=== PATIENT | female | born 1935 | race Caucasian/White ===

== ENCOUNTER 2020-11-24 11:23 | Inpatient (IN) | payer MEDICARE, BC ==
[~2020-11-24] VITALS: Ht 152.4 cm; Wt 49.0 kg
--- NOTE | 2020-11-24 11:23 | NUR ---
PT BIB [facility] FROM HOME CO GENERAL WEAKNESS, PT S/P COVID + CONFIRMED LAST WEEK. IN THE FIEL, PARAMEDICS PLACED NON-REBREATHER, REPLACED THE NON-REBREATHER WITH NC 4 LITRE, O2 SAT DECREASED TO LOW 80S. REPLACED THE NON-REBREATHER PER MD ORDER. MD AT BEDSIDE. PT DENIES SOB, DOES NOT USE ABDOMINAL MUSCLES.
[2020-11-24] MEDS ORDERED: CEFEPIME HCL 2 G in IV DEXTROSE 5% 100 ML IV ONE (11:45)
[2020-11-24] MEDS: AZITHROMYCIN IV 500 MG in IV DEXTROSE 5% 250 ML IV ONE ×2 (11:45→11:58)
[2020-11-24] MEDS ORDERED: CEFEPIME HCL 1 G VIAL ONE (11:49)
[2020-11-24] MEDS ORDERED: AZITHROMYCIN 500MG/ D5W 250ML IVPB **ER PYXIS ONLY IV ONE (11:49)
[2020-11-24 11:51] LABS: HEMATOCRIT 40.6 % (31.2-41.9); MEAN CORPUSCULAR HEMOGLOBIN 30.3 uug (24.7-32.8); MEAN CORPUSCULAR VOLUME 91.1 fL (75.5-95.3); PLATELET COUNT (AUTO) 348 K/uL (179-408)
--- NOTE | 2020-11-24 12:00 | NUR ---
RT PLACED HIGH FLOW OXYGEN ON PT. 40 LITRE, 100%, SAT 97%.
[2020-11-24 12:07] LABS: ALANINE AMINOTRANSFERASE 26 U/L (14-59); ALKALINE PHOSPHATASE 57 U/L (50-136); ASPARTATE AMINOTRANSFERASE 26 U/L (15-37); BILIRUBIN,DIRECT 0.2 mg/dL (0.0-0.2); BILIRUBIN,TOTAL 0.4 mg/dL (0.2-1.0); CARBON DIOXIDE 21 mmol/L (21-32); CHLORIDE 97 mmol/L (98-107); CREATININE 2.1 mg/dL (0.6-1.3); GLUCOSE 292 mg/dL (74-106); POTASSIUM 5.6 mmol/L (3.5-5.1)
[2020-11-24 12:20] LABS: UREA NITROGEN, BLOOD 117 mg/dL (7-18)
[2020-11-24] MEDS ORDERED: SODIUM POLYSTYRENE SULFONATE 15 G/60 ML LIQUID UDC PO ONE (12:45)
[2020-11-24] MEDS ORDERED: DEXTROSE 50% 50 ML DISP.SYRIN IV ONE (12:45)
[2020-11-24] MEDS ORDERED: CALCIUM GLUCONATE IV 1 GM in IV DEXTROSE 5% 50 ML IV ONE (12:45)
[2020-11-24] MEDS ORDERED: ALBUTEROL SULFATE 2.5 MG/3 ML NEBU NEB ONE (12:45)
[2020-11-24] MEDS ORDERED: FUROSEMIDE 20 MG/2 ML VIAL IVP ONE (12:45)
[2020-11-24] MEDS ORDERED: INSULIN REGULAR, HUMAN 300 UNIT/3 ML VIAL IV ONE (12:45)
[2020-11-24] MEDS ORDERED: IV NORMAL SALINE 50 ML BAG IV ONE (12:45)
[2020-11-24] MEDS ORDERED: CALCIUM GLUCONATE 1 GM/10 ML VIAL IV ONE (12:53)
[2020-11-24] MEDS ORDERED: ALBUTEROL SULFATE 2.5 MG/3 ML NEBU ONE ×2 (12:59→13:00)
[2020-11-24] MEDS ORDERED: FUROSEMIDE 40 MG/4 ML VIAL ONE (13:05)
[2020-11-24] MEDS ORDERED: DEXTROSE 50% 50 ML DISP.SYRIN ONE (13:06)
[2020-11-24] MEDS ORDERED: SODIUM POLYSTYRENE SULFONATE 15 G/60 ML LIQUID UDC ONE (13:06)
[2020-11-24] MEDS ORDERED: INSULIN REGULAR, HUMAN 300 UNIT/3 ML VIAL ONE (13:06)
--- NOTE | 2020-11-24 13:20 | NUR ---
PT'S DAUGHTER HERE AND GAVE HX OF: MYELOFIBROSIS, HTN, DM, THYROID.
--- NOTE | 2020-11-24 13:26 | NUR ---
CALLED PT 'S , JOSE PARKERER AND GOT THE MED LIST
[2020-11-24] MEDS ORDERED: LISI1TAB55 PO (13:31)
[2020-11-24] MEDS ORDERED: FURO-152 PO (13:31)
[2020-11-24] MEDS ORDERED: ROSU40TA PO (13:31)
[2020-11-24] MEDS ORDERED: POTA10CA43 PO (13:31)
[2020-11-24] MEDS ORDERED: PRED1TAB PO (13:31)
[2020-11-24] MEDS ORDERED: LEVO100T10 PO (13:31)
[2020-11-24 14:10] LABS: *BILIRUBIN,URIN NEGATIVE (NEGATIVE); *BLOOD, URINE 2+ (NEGATIVE); *CLARITY,URINE CLEAR (CLEAR); *COLOR,URINE LIGHT YELLOW (YELLOW); *KETONES,URINE NEGATIVE (NEGATIVE); *UROBILINOGEN,URINE 0.2 E.U./dl (NORMAL); LEUKOCYTE ESTERASE ,URINE NEGATIVE (NEGATIVE); NITRITE, URINE NEGATIVE (NEGATIVE); UGLUCOSE TRACE (NEGATIVE)
--- NOTE | 2020-11-24 15:00 | NUR ---
pt able to swallow a cup of water slowly.
[2020-11-24] MEDS ORDERED: INSU300I SQ ×2 (15:56→18:49)
--- NOTE | 2020-11-24 16:00 | NUR ---
transfered pt to floor with covid 19 precautions. pt remained on high flow oxygen, sat 92-94%. pt remained lethargic, but awake, axox4.
[2020-11-24 17:22] VITALS: BP 102/48
[2020-11-24 17:23] LABS: BACTERIA,URINE FEW /HPF (NONE SEEN); SQUAMOUS EPITHELIAL CELL,UR FEW /HPF (NONE SEEN); WBC,URINE 0-3 /HPF (0-3)
[2020-11-24] MEDS ORDERED: DENO60DI SQ (18:49)
[2020-11-24] MEDS ORDERED: MAGN400C PO (18:49)
[2020-11-24] MEDS ORDERED: ERGO50CA PO (18:49)
[2020-11-24] MEDS ORDERED: SITA1TAB6 PO (18:49)
--- NOTE | 2020-11-24 19:00 | NUR ---
Repositioned in bed. O2 with H[place]low at 40 L 100% FiO2 with O2 sat of 92-93%. Endorsed fro further care
[2020-11-24] MEDS ORDERED: DEXTROSE 50% 50 ML DISP.SYRIN IV PRN (19:45)
[2020-11-24 20:20] VITALS: BP 141/56
[2020-11-24] MEDS ORDERED: MORPHINE SULFATE 2 MG/1 ML DISP.SYRIN IV PRN (20:45)
[2020-11-24] MEDS ORDERED: ONDANSETRON 4 MG/2 ML VIAL IV PRN (20:45)
[2020-11-24] MEDS: DEXAMETHASONE SOD PHOSPHATE 4 MG INJ IV SCH ×2 (20:52→22:00)
[2020-11-24] MEDS ORDERED: ALBUTEROL SULFATE 8 GM HFA.AER.AD IH PRN (21:00)
[2020-11-24] MEDS: AZITHROMYCIN IV 500 MG in IV DEXTROSE 5% 250 ML IV SCH (21:11)
[2020-11-24] MEDS: IV NS 1000 ML 1,000 ML IV SCH (21:22)
[2020-11-24] MEDS: HEPARIN SODIUM,PORCINE 5,000 UNITS/ML VIAL SQ SCH (21:23)
[2020-11-24] MEDS: BLOOD SUGAR DIAGNOSTIC 1 EACH STRIP VI SCH (21:24)
[2020-11-24] MEDS: INSULIN GLARGINE,HUM 300 UNITS/3 ML CARTRIDGE SQ SCH (21:24)
[2020-11-24] MEDS: INSULIN REGULAR, HUMAN 300 UNIT/3 ML VIAL SQ PRN (21:26)
[2020-11-25 00:20] VITALS: BP 126/56
[2020-11-25 04:20] VITALS: BP 128/53
[2020-11-25] MEDS: DEXAMETHASONE SOD PHOSPHATE 4 MG INJ IV SCH ×3 (05:27→22:04)
[2020-11-25] MEDS: BLOOD SUGAR DIAGNOSTIC 1 EACH STRIP VI SCH ×4 (05:48→21:50)
[2020-11-25] MEDS: LEVOTHYROXINE SODIUM 100 MCG TABLET PO SCH (06:24)
[2020-11-25 06:28] LABS: HEMATOCRIT 34.7 % (31.2-41.9); MEAN CORPUSCULAR HEMOGLOBIN 30.4 uug (24.7-32.8); MEAN CORPUSCULAR VOLUME 90.1 fL (75.5-95.3); PLATELET COUNT (AUTO) 218 K/uL (179-408)
[2020-11-25] MEDS: IV NS 1000 ML 1,000 ML IV SCH ×2 (06:45→08:50)
[2020-11-25 07:03] LABS: THYROID STIMULATING HORMONE 0.176 mIU/mL (0.358-3.740)
[2020-11-25 07:23] LABS: ALANINE AMINOTRANSFERASE 27 U/L (14-59); ALKALINE PHOSPHATASE 48 U/L (50-136); ASPARTATE AMINOTRANSFERASE 21 U/L (15-37); BILIRUBIN,TOTAL 0.3 mg/dL (0.2-1.0); CARBON DIOXIDE 24 mmol/L (21-32); CHLORIDE 104 mmol/L (98-107); CHOLESTEROL 149 mg/dL (<200); CREATININE 1.8 mg/dL (0.6-1.3); FERRITIN 1504 ng/mL (8-252); GLUCOSE 200 mg/dL (74-106); HDL CHOLESTEROL 51 mg/dL (40-60); LACTATE DEHYDROGENASE 315 U/L (81-234); MAGNESIUM 2.5 mg/dL (1.8-2.4); PHOSPHOROUS 4.4 mg/dL (2.5-4.9); POTASSIUM 5.1 mmol/L (3.5-5.1); TOTAL PROTEIN, SERUM 6.9 g/dL (6.4-8.2); TRIGLYCERIDES 486 MG/DL (30-150)
[2020-11-25 07:46] LABS: UREA NITROGEN, BLOOD 90 mg/dL (7-18)
[2020-11-25] MEDS: HEPARIN SODIUM,PORCINE 5,000 UNITS/ML VIAL SQ SCH ×2 (08:08→21:51)
[2020-11-25] MEDS: INSULIN REGULAR, HUMAN 300 UNIT/3 ML VIAL SQ PRN ×4 (08:09→22:03)
[2020-11-25] MEDS: ZINC SULFATE 220 MG CAPSULE PO SCH (08:10)
[2020-11-25] MEDS: ASCORBIC ACID 500 MG TABLET PO SCH (08:10)
[2020-11-25] MEDS: PANTOPRAZOLE SODIUM 40 MG VIAL IV SCH (08:10)
[2020-11-25] MEDS: CHOLECALCIFEROL 1,000 UNIT TABLET PO SCH (08:10)
[2020-11-25 09:18] LABS: ABG BASE EXCESS -4.3 mmol/L; ABG HCO3 18.6 mmol/L; ABG PCO2 29.5 mmHg (35.0-45.0); ABG PH 7.418 (7.350-7.450); ABG PO2 69.2 mmHg (75.0-100.0); ABG SITE RIGHT RADIAL; ABG TOTAL HEMOGLOBIN 16.8 G/dL (12.0-16.0); COHb 1.2 % (0.5-1.5); MetHb 0.1 % (0.0-1.5); O2Hb 92.3 % (94.0-97.0); VENT MODE VAPOTHERM
[2020-11-25] MEDS: ACETAMINOPHEN 325 MG TABLET PO PRN ×2 (11:23→22:06)
[2020-11-25 12:00] VITALS: BP 133/52
--- NOTE | 2020-11-25 12:00 | NUR ---
SEEN BY DR WEAVER FOR PULMO CONSULT SEE NOTES
[2020-11-25 16:18] VITALS: BP 109/35
--- NOTE | 2020-11-25 17:18 | NUR ---
PATIENT SATURATING 92-94% ON HF O2 40% . DENIES CHEST PAIN, SLIGHT SOB ON EXERTION. SR ON MONITOR
--- NOTE | 2020-11-25 19:30 | NUR ---
RECEIVED PT AWAKE,ALERT AND ORIENTEDX4. PT IN NO ACUTE DISTRESS. IV INTACT. SAFETY AND COMFORT PROVIDED. PT ON HIGH FLOW 40%. WILL CONTINUE TO MONITOR.
[2020-11-25 20:43] VITALS: BP 126/48
[2020-11-25] MEDS: AZITHROMYCIN IV 500 MG in IV DEXTROSE 5% 250 ML IV SCH (21:50)
[2020-11-25] MEDS: INSULIN GLARGINE,HUM 300 UNITS/3 ML CARTRIDGE SQ SCH (22:02)
[2020-11-26 00:24] VITALS: BP 129/48
[2020-11-26 04:20] VITALS: BP 146/64
[2020-11-26] MEDS: DEXAMETHASONE SOD PHOSPHATE 4 MG INJ IV SCH ×3 (05:37→21:30)
--- NOTE | 2020-11-26 05:41 | NUR ---
PT SLEPT INTERMITTENTLY. PT IN NO ACUTE RESPIRATORY DISTRESS. IV INTACT. PRESCRIBED MEDICATION GIVEN AND PT TOLERATED IT WELL. TYLENOL PRN GIVEN AT 2206H. SAFETY AND COMFORT PROVIDED. WILL ENDORSE TO INCOMING NURSE FOR CONTINUITY OF CARE.
[2020-11-26] MEDS: LEVOTHYROXINE SODIUM 100 MCG TABLET PO SCH (06:16)
[2020-11-26 06:32] LABS: HEMATOCRIT 29.9 % (31.2-41.9); MEAN CORPUSCULAR HEMOGLOBIN 31.3 uug (24.7-32.8); MEAN CORPUSCULAR VOLUME 90.3 fL (75.5-95.3); PLATELET COUNT (AUTO) 239 K/uL (179-408)
[2020-11-26] MEDS: IV NS 1000 ML 1,000 ML IV SCH (06:32)
[2020-11-26] MEDS: BLOOD SUGAR DIAGNOSTIC 1 EACH STRIP VI SCH ×4 (06:32→21:57)
[2020-11-26 06:51] LABS: CARBON DIOXIDE 23 mmol/L (21-32); CHLORIDE 106 mmol/L (98-107); CREATININE 1.6 mg/dL (0.6-1.3); GLUCOSE 205 mg/dL (74-106); MAGNESIUM 2.3 mg/dL (1.8-2.4); POTASSIUM 4.8 mmol/L (3.5-5.1); UREA NITROGEN, BLOOD 70 mg/dL (7-18)
--- NOTE | 2020-11-26 07:30 | NUR ---
Received patient resting in bed. AOx4. On 40% high flow, saturating at 93-95%. NSR on monitor. No signs of acute distress. Patient denies pain/ discomfort. Will continue to monitor. Addendum: 11/26/20 at 1427 by BRIAN MURCIA RN RN Patient on 40L, 100% FIO2 Highflow NC.
[2020-11-26] MEDS: INSULIN REGULAR, HUMAN 300 UNIT/3 ML VIAL SQ PRN ×4 (07:33→22:01)
[2020-11-26] MEDS: PANTOPRAZOLE SODIUM 40 MG VIAL IV SCH (08:14)
[2020-11-26] MEDS: ASCORBIC ACID 500 MG TABLET PO SCH (08:16)
[2020-11-26] MEDS: ZINC SULFATE 220 MG CAPSULE PO SCH (08:16)
[2020-11-26] MEDS: CHOLECALCIFEROL 1,000 UNIT TABLET PO SCH (08:16)
[2020-11-26] MEDS: HEPARIN SODIUM,PORCINE 5,000 UNITS/ML VIAL SQ SCH ×2 (08:17→21:31)
[2020-11-26 12:00] VITALS: BP 138/42
[2020-11-26 15:31] LABS: BAND % (MANUAL) 2 % (0-10); LYMPHOCYTES % (MANUAL) 10 % (20-40); MONOCYTES % (MANUAL) 5 % (2-10); NEUTROPHILS % (MANUAL) 83 % (42-75)
[2020-11-26 16:00] VITALS: BP 133/51
[2020-11-26] MEDS ORDERED: REMDESIVIR (CHARGED) 200 MG in IV NORMAL SALINE 210 ML IV ONE (17:15)
[2020-11-26] MEDS: GLUCERNA SHAKE VANILLA 237 ML CAN PO SCH (17:40)
--- NOTE | 2020-11-26 17:57 | NUR ---
PT REMAINS ON HFNC 40 LPM, 100% FIO2. PT STABLE THROUGHOUT SHIFT. SATURATION BETWEEN 90-97%. PT COMPLAINS OF SOB ON EXERTION OTHERWISE SHOWS NO DISTRESS WHILE AT REST. CONT. P.OX AT BEDSIDE. STERILE H2O BAG CHANGED DURING SHIFT. WILL CONTINUE TO MONITOR.
--- NOTE | 2020-11-26 18:53 | NUR ---
Patient resting in bed. AOx4. On 40L Highflow, 100% FIO2, saturating at 94-96%. No signs of acute distress. Patient denies pain/ discomfort. Patient compliant with medications and care. Safety measures provided. Needs anticipated and met. Will endorse to incoming shift for continuity of care.
[2020-11-26 19:54] VITALS: BP 146/48
[2020-11-26] MEDS: AZITHROMYCIN IV 500 MG in IV DEXTROSE 5% 250 ML IV SCH (21:30)
[2020-11-26] MEDS: INSULIN GLARGINE,HUM 300 UNITS/3 ML CARTRIDGE SQ SCH (22:03)
--- NOTE | 2020-11-26 23:37 | NUR ---
Received patient on bed with, AOx4, able to make needs known. Remains on continuous 40L highflow, 100% FIO2, saturating at 96%, no respiratory distress noted. Denies pain and discomfort at this time. Due medications given on time and blood sugar checked with sliding scale and routine insulin given. Safety measures provided. All needs attended. Call light placed within reach. Frequent visual checks done. Will continue to monitor.
[2020-11-27 00:13] VITALS: BP 152/45
[2020-11-27 04:40] VITALS: BP 145/45
[2020-11-27] MEDS: DEXAMETHASONE SOD PHOSPHATE 4 MG INJ IV SCH ×3 (05:31→21:08)
[2020-11-27] MEDS: LEVOTHYROXINE SODIUM 100 MCG TABLET PO SCH (06:00)
[2020-11-27] MEDS: PANTOPRAZOLE SODIUM 40 MG TABLET.DR PO SCH (06:01)
[2020-11-27] MEDS: BLOOD SUGAR DIAGNOSTIC 1 EACH STRIP VI SCH ×4 (06:32→20:20)
--- NOTE | 2020-11-27 06:41 | NUR ---
Patient slept throughout the night, easily arousable for care and able to make needs known. Remains on continuous 40L highflow, 100% FIO2, saturating at 94%-96%, no respiratory distress noted. Midline on LUDMILA and peripheral line on LAC intact and flushed with NS. Denies pain and discomfort at this time. Blood sugar checked 144 at 0630H. Safety measures provided. All needs attended. Call light placed within reach. Frequent visual checks done. Will endorse to next shift for continuity of care.
[2020-11-27 06:54] LABS: HEMATOCRIT 31.1 % (31.2-41.9); MEAN CORPUSCULAR HEMOGLOBIN 31.5 uug (24.7-32.8); MEAN CORPUSCULAR VOLUME 92.9 fL (75.5-95.3); PLATELET COUNT (AUTO) 246 K/uL (179-408)
[2020-11-27 07:28] LABS: CARBON DIOXIDE 22 mmol/L (21-32); CHLORIDE 108 mmol/L (98-107); CREATININE 1.4 mg/dL (0.6-1.3); GLUCOSE 158 mg/dL (74-106); MAGNESIUM 2.2 mg/dL (1.8-2.4); PHOSPHOROUS 3.9 mg/dL (2.5-4.9); POTASSIUM 5.1 mmol/L (3.5-5.1); UREA NITROGEN, BLOOD 61 mg/dL (7-18)
--- NOTE | 2020-11-27 08:00 | NUR ---
Awake, alert, oriented x 4, on moderate high back rest. O2 with Hi flow at 40L 100% FIO2 with O2 sat of 90%. Able to eat 50% of breakfast served.
[2020-11-27] MEDS: ASCORBIC ACID 500 MG TABLET PO SCH (09:09)
[2020-11-27] MEDS: CHOLECALCIFEROL 1,000 UNIT TABLET PO SCH (09:10)
[2020-11-27] MEDS: ZINC SULFATE 220 MG CAPSULE PO SCH (09:10)
[2020-11-27] MEDS: HEPARIN SODIUM,PORCINE 5,000 UNITS/ML VIAL SQ SCH ×2 (09:11→20:10)
[2020-11-27] MEDS: INSULIN REGULAR, HUMAN 300 UNIT/3 ML VIAL SQ PRN ×3 (09:12→16:48)
[2020-11-27] MEDS: GLUCERNA SHAKE VANILLA 237 ML CAN PO SCH ×3 (09:26→16:48)
--- NOTE | 2020-11-27 11:00 | NUR ---
Resting with O2 sat of 94-96% with Hi flow O2 at 40L 100% FIO2
[2020-11-27 11:05] VITALS: BP 150/46
[2020-11-27 11:17] VITALS: BP 150/46
--- NOTE | 2020-11-27 15:00 | NUR ---
Sponge bath given. Repositioned in bed comfortably
[2020-11-27 15:28] VITALS: BP 152/62
[2020-11-27] MEDS ORDERED: FUROSEMIDE 20 MG/2 ML VIAL IV ONE (16:45)
[2020-11-27] MEDS ORDERED: REMDESIVIR (CHARGED) 100 MG in IV NORMAL SALINE 100 ML IV SCH (17:15)
--- NOTE | 2020-11-27 18:05 | NUR ---
Desaturation noted when eating, 82% O2 sat. Repositioned comfortably. Will monitor
--- NOTE | 2020-11-27 18:52 | NUR ---
Resting comfortably. O2 sat 94% with O2 on hi flow at 40L 100% FIO2. Endorsed for further care
[2020-11-27] MEDS: INSULIN GLARGINE,HUM 300 UNITS/3 ML CARTRIDGE SQ SCH (20:19)
[2020-11-27 20:36] VITALS: BP 142/55
[2020-11-28 00:32] VITALS: BP 144/56
--- NOTE | 2020-11-28 03:07 | NUR ---
PATIENT ON HIGH FLOW NASAL CANNULA @ 100%, @ 40L/M , DOING WELL, PULSE OXY AT BEDSIDE, SAT 94 - 97%, CHANGE H20 BAG, PT STABLE. Josselyn ALLANP Addendum: 11/28/20 at 0308 by CAMERON WESTBROOK RT Amended: Links added.
[2020-11-28 04:39] VITALS: BP 147/48
[2020-11-28 06:21] LABS: HEMATOCRIT 31.8 % (31.2-41.9); MEAN CORPUSCULAR VOLUME 88.7 fL (75.5-95.3); PLATELET COUNT (AUTO) 299 K/uL (179-408)
[2020-11-28] MEDS: DEXAMETHASONE SOD PHOSPHATE 4 MG INJ IV SCH ×3 (06:21→20:49)
[2020-11-28] MEDS: PANTOPRAZOLE SODIUM 40 MG TABLET.DR PO SCH (06:21)
[2020-11-28] MEDS: BLOOD SUGAR DIAGNOSTIC 1 EACH STRIP VI SCH ×4 (06:22→21:00)
[2020-11-28] MEDS: LEVOTHYROXINE SODIUM 100 MCG TABLET PO SCH (06:22)
--- NOTE | 2020-11-28 06:44 | NUR ---
Pt rested well in between care; tolerated present high flow setting; needs attended; repositioned for comfort.
[2020-11-28 07:02] LABS: ALANINE AMINOTRANSFERASE 74 U/L (14-59); ALKALINE PHOSPHATASE 48 U/L (50-136); ASPARTATE AMINOTRANSFERASE 32 U/L (15-37); BILIRUBIN,DIRECT 0.1 mg/dL (0.0-0.2); BILIRUBIN,TOTAL 0.3 mg/dL (0.2-1.0); CARBON DIOXIDE 25 mmol/L (21-32); CHLORIDE 105 mmol/L (98-107); CREATININE 1.5 mg/dL (0.6-1.3); FERRITIN 2955 ng/mL (8-252); GLUCOSE 158 mg/dL (74-106); LACTATE DEHYDROGENASE 314 U/L (81-234); PHOSPHOROUS 5.1 mg/dL (2.5-4.9); POTASSIUM 4.6 mmol/L (3.5-5.1); TOTAL PROTEIN, SERUM 6.1 g/dL (6.4-8.2); UREA NITROGEN, BLOOD 72 mg/dL (7-18)
[2020-11-28] MEDS: INSULIN REGULAR, HUMAN 300 UNIT/3 ML VIAL SQ PRN ×4 (07:49→21:33)
--- NOTE | 2020-11-28 08:00 | NUR ---
RECEIVED PATIENT IN ALERT AND ORIENTED DENIES PAIN OR DISCOMFORTS AT THIS TIME REMAIN ON COVID ISOLATION AND PRECAUTION ORDERED REMAIN ON 40 LITERS HIGH FLOW O2 WITH NO SOB AT THIS TIME TELE IS SR.NO S/S OF HYPO/HYPERGLYCEMIC REACTIONS AT THIS TIME CALL LIGHT AND PERSONAL BELONGINGS ARE WITHIN EASY REACH MADE COMFORTABLE WILL CONTINUE TO OBSERVE.
[2020-11-28] MEDS: CHOLECALCIFEROL 1,000 UNIT TABLET PO SCH (08:34)
[2020-11-28] MEDS: ASCORBIC ACID 500 MG TABLET PO SCH (08:34)
[2020-11-28] MEDS: ZINC SULFATE 220 MG CAPSULE PO SCH (08:34)
[2020-11-28] MEDS: HEPARIN SODIUM,PORCINE 5,000 UNITS/ML VIAL SQ SCH ×2 (08:35→21:31)
[2020-11-28] MEDS: GLUCERNA SHAKE VANILLA 237 ML CAN PO SCH ×3 (09:45→16:44)
[2020-11-28 12:00] VITALS: BP 159/62
[2020-11-28 14:07] LABS: BAND % (MANUAL) 5 % (0-10); EOSINOPHILS % (MANUAL) 1 % (0-8); LYMPHOCYTES % (MANUAL) 10 % (20-40); MONOCYTES % (MANUAL) 6 % (2-10); NEUTROPHILS % (MANUAL) 78 % (42-75)
[2020-11-28 16:00] VITALS: BP 138/63
--- NOTE | 2020-11-28 17:20 | NUR ---
DR SALDAÑA OD INFECTIOUS DISEASE POWER GENERATION ENGINEER FOR DR PATEL HERE TO SEE PATIENT WITH NO NEW ORDERS AT THIS TIME.
[2020-11-28 20:18] VITALS: BP 153/55
[2020-11-28] MEDS: FUROSEMIDE 20 MG/2 ML VIAL IV SCH (20:49)
[2020-11-28] MEDS: INSULIN GLARGINE,HUM 300 UNITS/3 ML CARTRIDGE SQ SCH (21:32)
--- NOTE | 2020-11-28 23:07 | NUR ---
AAOx4 Watching TV upon initial rounds. Needs attended. VSS. On 40% high flow oxygen 94% pulse ox. No acute distress noted. Early catheter intact draining yellow urine. Will monitor patient. Accucheck @2100 was 292 with coverage given. Denies any pain nor any discomfort.
[2020-11-29 00:12] VITALS: BP 119/53
--- NOTE | 2020-11-29 01:04 | NUR ---
PATIENT ON CONT HFNC @ 100% @ 40L/M , SAT 91-95%, CHECK H2O BAG, PT STABLE .D DARIANA LOG SAWYER Addendum: 11/29/20 at 0106 by CAMERON WESTBROOK RT Amended: Links added.
--- NOTE | 2020-11-29 04:07 | NUR ---
Awake alert and oriented x4 Early catheter intact draining yellow urine. VSS Needs attended. No acute distress noted. On 40%high flow oxygen, pulse ox 91-92% Kept comfortable. Will monitor patient.
[2020-11-29 04:18] VITALS: BP 153/66
[2020-11-29] MEDS: DEXAMETHASONE SOD PHOSPHATE 4 MG INJ IV SCH ×3 (05:28→22:27)
[2020-11-29] MEDS: PANTOPRAZOLE SODIUM 40 MG TABLET.DR PO SCH (06:03)
[2020-11-29] MEDS: LEVOTHYROXINE SODIUM 100 MCG TABLET PO SCH (06:03)
--- NOTE | 2020-11-29 06:24 | NUR ---
End of shift notes: Slept well most of the shift. AAOx4 Needs attended. No respiratory distress noted. Will monitor patient. No complaints of pain.
[2020-11-29] MEDS: BLOOD SUGAR DIAGNOSTIC 1 EACH STRIP VI SCH ×4 (06:53→22:28)
[2020-11-29] MEDS: GLUCERNA SHAKE VANILLA 237 ML CAN PO SCH ×3 (09:00→16:44)
--- NOTE | 2020-11-29 09:00 | NUR ---
Pt on high flow 40% with saturation of 95%. Pt alrt and oriented x 4. Pt denies any c/o pain. Dr Baker here to see patient. No new orders received. Call light is within reach. PT on isolation for covid +. PT has good appetite for breakfast.
[2020-11-29] MEDS: INSULIN REGULAR, HUMAN 300 UNIT/3 ML VIAL SQ PRN ×3 (09:25→16:43)
[2020-11-29] MEDS: ZINC SULFATE 220 MG CAPSULE PO SCH (09:26)
[2020-11-29] MEDS: CHOLECALCIFEROL 1,000 UNIT TABLET PO SCH (09:26)
[2020-11-29] MEDS: FUROSEMIDE 20 MG/2 ML VIAL IV SCH (09:27)
[2020-11-29] MEDS: HEPARIN SODIUM,PORCINE 5,000 UNITS/ML VIAL SQ SCH ×2 (09:27→22:24)
[2020-11-29] MEDS: ASCORBIC ACID 500 MG TABLET PO SCH (09:27)
[2020-11-29 12:00] VITALS: BP 122/45
--- NOTE | 2020-11-29 14:00 | NUR ---
Follow up with homer gottlieb spoke with Iris from lab states that there is no result and should expect result for tomorrow. Attempted to get sputum pt is no coughing and no sputum noted. PT denies any c/o pain.
[2020-11-29 16:00] VITALS: BP 109/67
--- NOTE | 2020-11-29 18:00 | NUR ---
Worked with pt x 4 re: IS x 10 WA. PT cooperative with doing the IS. Pt tolerated Prone position for 1 hr. Pt saturating 97% on high flow 40lit @ 100.
--- NOTE | 2020-11-29 19:30 | NUR ---
RECEIVED PT AWAKE, ALERT AND ORIENTEDX3. PT IN NO ACUTE DISTRESS. IV INTACT. RODRIGUEZ INTACT AND DRAINING WELL. PT ON HIGH FLOW OXYGEN 40L . SAFETY AND COMFORT PROVIDED. WILL CONTINUE TO MONITOR.
[2020-11-29 20:00] VITALS: BP 104/46
[2020-11-29] MEDS: INSULIN GLARGINE,HUM 300 UNITS/3 ML CARTRIDGE SQ SCH (21:00)
--- NOTE | 2020-11-29 23:42 | NUR ---
PATIENT HAS BEEN ON CONT HFNC @ 100% @ 40L/M , STABLE, CHANGE H2O BAG, CHECK HIGH FLOW NASAL CANNULA PERIODICALLY, WITH PULSE OXY AT BEDSIDE, SAT 91- 94%, APPROX. D DARIANA MOLD HOLDER Addendum: 11/29/20 at 2344 by CAMERON WESTBROOK RT Amended: Links added.
[2020-11-30] VITALS: BP 128/44
[2020-11-30 04:00] VITALS: BP 118/59
[2020-11-30] MEDS: DEXAMETHASONE SOD PHOSPHATE 4 MG INJ IV SCH ×3 (05:58→21:29)
[2020-11-30] MEDS: PANTOPRAZOLE SODIUM 40 MG TABLET.DR PO SCH (06:00)
[2020-11-30] MEDS: LEVOTHYROXINE SODIUM 100 MCG TABLET PO SCH (06:00)
--- NOTE | 2020-11-30 06:16 | NUR ---
PT SLEPT INTERMITTENTLY. PT IN NO ACUTE DISTRESS. IV INTACT. RODRIGUEZ INTACT AND DRAINING WELL.PT SOMETIMES FORGETFUL NEEDS REORIENTATION. PT ON SINUS RHYTHM. PRESCRIBED MEDICATION GIVEN AND PT TOLERATED IT WELL. SAFETY AND COMFORT PROVIDED. ALL NEEDS ARE MET. WILL ENDORSE TO INCOMING NURSE FOR CONTINUITY OF CARE.
[2020-11-30 06:23] LABS: HEMATOCRIT 34.4 % (31.2-41.9); MEAN CORPUSCULAR HEMOGLOBIN 30.5 uug (24.7-32.8); MEAN CORPUSCULAR VOLUME 89.1 fL (75.5-95.3); PLATELET COUNT (AUTO) 322 K/uL (179-408)
[2020-11-30] MEDS: BLOOD SUGAR DIAGNOSTIC 1 EACH STRIP VI SCH ×4 (06:32→21:08)
[2020-11-30 06:45] LABS: ALANINE AMINOTRANSFERASE 84 U/L (14-59); ALKALINE PHOSPHATASE 51 U/L (50-136); ASPARTATE AMINOTRANSFERASE 25 U/L (15-37); BILIRUBIN,DIRECT 0.1 mg/dL (0.0-0.2); BILIRUBIN,TOTAL 0.3 mg/dL (0.2-1.0); CARBON DIOXIDE 24 mmol/L (21-32); CHLORIDE 101 mmol/L (98-107); CREATININE 1.5 mg/dL (0.6-1.3); GLUCOSE 185 mg/dL (74-106); MAGNESIUM 2.1 mg/dL (1.8-2.4); PHOSPHOROUS 5.1 mg/dL (2.5-4.9); POTASSIUM 4.5 mmol/L (3.5-5.1); TOTAL PROTEIN, SERUM 6.1 g/dL (6.4-8.2)
--- NOTE | 2020-11-30 07:30 | NUR ---
received in bed hob elevated. on high flow 40lpm 100% o2. no resp distress. breathing unlabored. on continuous pulse ox spo 97%. no s/sx of pain noted. fc intact draining yellow urine. LAC iv intact. bed low and locked siderails up, alarm on. call light and personal items in reach. continue to monitor.
[2020-11-30 07:46] LABS: UREA NITROGEN, BLOOD 93 mg/dL (7-18)
--- NOTE | 2020-11-30 07:50 | NUR ---
relayed bun-[address] carlota murphy at this time.
[2020-11-30] MEDS: INSULIN REGULAR, HUMAN 300 UNIT/3 ML VIAL SQ PRN ×4 (08:15→21:28)
[2020-11-30] MEDS: ASCORBIC ACID 500 MG TABLET PO SCH (08:45)
[2020-11-30] MEDS: CHOLECALCIFEROL 1,000 UNIT TABLET PO SCH (08:45)
[2020-11-30] MEDS: ZINC SULFATE 220 MG CAPSULE PO SCH (08:45)
[2020-11-30] MEDS: HEPARIN SODIUM,PORCINE 5,000 UNITS/ML VIAL SQ SCH ×2 (08:46→21:26)
[2020-11-30] MEDS: FUROSEMIDE 20 MG/2 ML VIAL IV SCH (08:46)
[2020-11-30] MEDS: GLUCERNA SHAKE VANILLA 237 ML CAN PO SCH ×3 (08:50→17:26)
[2020-11-30 12:00] VITALS: BP 112/51
--- NOTE | 2020-11-30 13:42 | NUR ---
received call from pt's wanted to talk to doctor. dr. van provided 's number.
[2020-11-30 16:00] VITALS: BP 116/53
--- NOTE | 2020-11-30 16:40 | NUR ---
noted patient desating 87% on high flow 40 lpm 100% o2. remains alert and oriented able to make needs known. put on nrb 15lpm o2 sat went up to 98%. RT called.
--- NOTE | 2020-11-30 16:49 | NUR ---
pt verbalize she feels a little better. repositioned for comfort. spo2 98% maintained. Addendum: 11/30/20 at 1659 by AGUSTIN BARNETT RN dr. rodriguez made aware.
--- NOTE | 2020-11-30 16:55 | NUR ---
called RT again and spoke with kirt. made aware of situation and said will come.
--- NOTE | 2020-11-30 18:55 | NUR ---
pt resting but arousable to stimuli. currently on high flow 40lpm 100% O2 and nrb 15lpm. spo2 95%. breathing unlabored. denies pain or sob. stated she's comfortable. needs attended. kept comfortable.
[2020-11-30 20:00] VITALS: BP 124/50
--- NOTE | 2020-11-30 20:30 | NUR ---
PATIENT ALERT ORIENTED, NO SOB, ON HIGH FLOW OXYGEN 40%. 15 LITERS NON REBREATHER MASK, TOLERATE WELL OXYGEN SAT 98%, AFEBRILE, DENIES PAIN AT THIS TIME. CONT TO MONITOR.
[2020-11-30] MEDS: INSULIN GLARGINE,HUM 300 UNITS/3 ML CARTRIDGE SQ SCH (21:27)
[2020-12-01] VITALS: BP 131/65
[2020-12-01 04:00] VITALS: BP 137/77
[2020-12-01] MEDS: LEVOTHYROXINE SODIUM 100 MCG TABLET PO SCH (06:14)
[2020-12-01] MEDS: PANTOPRAZOLE SODIUM 40 MG TABLET.DR PO SCH (06:14)
[2020-12-01] MEDS: DEXAMETHASONE SOD PHOSPHATE 4 MG INJ IV SCH ×3 (06:14→21:07)
[2020-12-01] MEDS: BLOOD SUGAR DIAGNOSTIC 1 EACH STRIP VI SCH ×4 (06:15→20:39)
[2020-12-01 06:21] LABS: HEMATOCRIT 36.8 % (31.2-41.9); MEAN CORPUSCULAR HEMOGLOBIN 30.3 uug (24.7-32.8); MEAN CORPUSCULAR VOLUME 88.6 fL (75.5-95.3); PLATELET COUNT (AUTO) 342 K/uL (179-408)
--- NOTE | 2020-12-01 07:02 | NUR ---
PATIENT ALERT ORIENTED, NO SOB NO CHEST PAIN, APPEARS WEAK, PATIENT ON 40 LITERS HIGH FLOW AND 15 LITERS NC SAT 98-99%. PATIENT HAS NO COMPLAIN OF SHORTNESS OF BREATH. CONT TO MONITOR.
[2020-12-01 08:04] LABS: ALANINE AMINOTRANSFERASE 62 U/L (14-59); ALKALINE PHOSPHATASE 55 U/L (50-136); ASPARTATE AMINOTRANSFERASE 20 U/L (15-37); BILIRUBIN,DIRECT 0.1 mg/dL (0.0-0.2); BILIRUBIN,TOTAL 0.3 mg/dL (0.2-1.0); CARBON DIOXIDE 25 mmol/L (21-32); CHLORIDE 104 mmol/L (98-107); CREATININE 1.5 mg/dL (0.6-1.3); FERRITIN 2828 ng/mL (8-252); GLUCOSE 142 mg/dL (74-106); LACTATE DEHYDROGENASE 356 U/L (81-234); MAGNESIUM 2.3 mg/dL (1.8-2.4); PHOSPHOROUS 5.4 mg/dL (2.5-4.9); TOTAL PROTEIN, SERUM 6.6 g/dL (6.4-8.2)
[2020-12-01 08:10] LABS: UREA NITROGEN, BLOOD 101 mg/dL (7-18)
[2020-12-01] MEDS: ASCORBIC ACID 500 MG TABLET PO SCH (09:04)
[2020-12-01] MEDS: ZINC SULFATE 220 MG CAPSULE PO SCH (09:04)
[2020-12-01] MEDS: FUROSEMIDE 20 MG/2 ML VIAL IV SCH (09:04)
[2020-12-01] MEDS: CHOLECALCIFEROL 1,000 UNIT TABLET PO SCH (09:04)
[2020-12-01] MEDS: GLUCERNA SHAKE VANILLA 237 ML CAN PO SCH ×3 (09:05→17:12)
[2020-12-01] MEDS: HEPARIN SODIUM,PORCINE 5,000 UNITS/ML VIAL SQ SCH ×2 (09:43→20:18)
[2020-12-01] MEDS: INSULIN REGULAR, HUMAN 300 UNIT/3 ML VIAL SQ PRN ×4 (09:45→20:43)
--- NOTE | 2020-12-01 10:00 | NUR ---
Informed Dr. Macias regarding increased WBC, BUN and Creatinine results today, and MD said she will see patient before putting in order.
[2020-12-01 10:37] VITALS: BP 121/53
--- NOTE | 2020-12-01 14:20 | NUR ---
Patient seen by Dr. Macias, update given to MD and informed MD regarding patient's decreased food intake with no new order at this time.
[2020-12-01 14:22] LABS: BAND % (MANUAL) 1 % (0-10); LYMPHOCYTES % (MANUAL) 3 % (20-40); MONOCYTES % (MANUAL) 4 % (2-10); NEUTROPHILS % (MANUAL) 92 % (42-75)
[2020-12-01 15:36] VITALS: BP 120/53
--- NOTE | 2020-12-01 17:25 | NUR ---
Patient remains alert, oriented x 3, on high flow nasal cannula 40LPM FiO2 100% and NRB mask 15LPM with SpO2 98%, afebrile, no complain of any discomfort. Patient seen by Dr. Bhagat, update given to MD. Will continue to monitor.
[2020-12-01] MEDS ORDERED: IV DEXTROSE 5% 500 ML IV ONE (17:30)
[2020-12-01] MEDS ORDERED: IV 1/2NS 1000 ML 500 ML IV ONE (17:45)
[2020-12-01 20:00] VITALS: BP 110/46
--- NOTE | 2020-12-01 20:15 | NUR ---
PATIENT ALERT ORIENTED, x 3 NO SOB, ON HIGH FLOW OXYGEN 40%. 15 LITERS NON REBREATHER MASK, TOLERATE WELL OXYGEN SAT 99%, AFEBRILE, DENIES PAIN AT THIS TIMe luke light with in reach
[2020-12-01] MEDS: INSULIN GLARGINE,HUM 300 UNITS/3 ML CARTRIDGE SQ SCH (20:45)
[2020-12-02] VITALS: BP 112/67
--- NOTE | 2020-12-02 00:54 | NUR ---
pt resting but arousable to stimuli. currently on high flow 40lpm 100% O2 and nrb 15lpm. spo2 99%. breathing unlabored. denies pain or sob. stated she's comfortable. needs attended. kept comfortable.
[2020-12-02 04:00] VITALS: BP 124/55
[2020-12-02] MEDS: DEXAMETHASONE SOD PHOSPHATE 4 MG INJ IV SCH ×3 (05:09→22:00)
[2020-12-02] MEDS: LEVOTHYROXINE SODIUM 100 MCG TABLET PO SCH (06:04)
[2020-12-02] MEDS: PANTOPRAZOLE SODIUM 40 MG TABLET.DR PO SCH (06:04)
[2020-12-02] MEDS: BLOOD SUGAR DIAGNOSTIC 1 EACH STRIP VI SCH ×4 (06:04→20:31)
[2020-12-02 07:04] LABS: HEMATOCRIT 37.2 % (31.2-41.9); MEAN CORPUSCULAR HEMOGLOBIN 30.3 uug (24.7-32.8); MEAN CORPUSCULAR VOLUME 89.7 fL (75.5-95.3); PLATELET COUNT (AUTO) 313 K/uL (179-408)
[2020-12-02 07:09] LABS: CARBON DIOXIDE 24 mmol/L (21-32); CHLORIDE 97 mmol/L (98-107); CREATININE 1.5 mg/dL (0.6-1.3); GLUCOSE 96 mg/dL (74-106); PHOSPHOROUS 6.2 mg/dL (2.5-4.9); POTASSIUM 5.1 mmol/L (3.5-5.1)
[2020-12-02 07:30] LABS: UREA NITROGEN, BLOOD 103 mg/dL (7-18)
--- NOTE | 2020-12-02 07:42 | NUR ---
patient is alert, oriented x4, continue on high flow and nonrebreather, critical lab value bun 103 and lactic acid 2.[address] herrmann, however no acute distress noted at this time
[2020-12-02] MEDS: ASCORBIC ACID 500 MG TABLET PO SCH (08:31)
[2020-12-02] MEDS: FUROSEMIDE 20 MG/2 ML VIAL IV SCH (08:31)
[2020-12-02] MEDS: CHOLECALCIFEROL 1,000 UNIT TABLET PO SCH (08:32)
[2020-12-02] MEDS: ZINC SULFATE 220 MG CAPSULE PO SCH (08:32)
[2020-12-02] MEDS: GLUCERNA SHAKE VANILLA 237 ML CAN PO SCH ×3 (08:33→17:00)
[2020-12-02] MEDS: HEPARIN SODIUM,PORCINE 5,000 UNITS/ML VIAL SQ SCH ×2 (08:36→20:36)
[2020-12-02 09:02] VITALS: BP 112/47
--- NOTE | 2020-12-02 09:57 | NUR ---
repeated lactic acid 2.[address] herrmann
[2020-12-02 11:56] VITALS: BP 109/49
--- NOTE | 2020-12-02 14:25 | NUR ---
PT REMAINS ON HFNC 40 LPM, 100% FIO2 AND 15LPM NRB MASK DOUBLE SETUP. PT STABLE THROUGHOUT SHIFT. ATTEMPTED TO REMOVE NRB MASK DURING SHIFT, O2 DESATURATED < 92%. NRB MASK PLACED BACK ON. PT COMPLAINS OF SOB ON EXERTION, NO DISTRESS NOTED AT REST. SPO2 BETWEEN 93-99% THROUGHOUT SHIFT. CONT. P.OX AT BEDSIDE. WILL CONTINUE TO MONITOR.
[2020-12-02 15:35] VITALS: BP 115/50
[2020-12-02] MEDS: INSULIN REGULAR, HUMAN 300 UNIT/3 ML VIAL SQ PRN ×2 (17:46→20:36)
--- NOTE | 2020-12-02 18:00 | NUR ---
patient curtis was leaking, patient refused to insert it again, curtis discontinued, will continue to monitor for voiding, no bladder distension or bladder discomfort noted. will endorse to next shift to continue to monitor, patient is on high flow and nonrebreather, stable, saturating at 98%, howerver very lethargic, Per RT, tried to remove the nonrebreather, could not tolerate without nonrebreather, kept clean and dry.
--- NOTE | 2020-12-02 20:11 | NUR ---
Patient in bed awake and alert able to make needs known .on high flow at 40, nonbreather mask 15%.Saturating at 97-98 %.NSr on Tele. HOB Elevated.Midline on left upper arm patent and intact.Patient denies pain. No facial grimaces. Dr Bhagat seen and examined patient with new order received noted and carried out. Patient voided well. Pericare provided.Changed and repositioned.
[2020-12-02 20:30] VITALS: BP 100/41
[2020-12-02] MEDS ORDERED: IV NS 1000 ML 1,000 ML IV ONE (20:30)
[2020-12-02] MEDS: INSULIN GLARGINE,HUM 300 UNITS/3 ML CARTRIDGE SQ SCH (20:36)
[2020-12-03 04:30] VITALS: BP 113/47
[2020-12-03] MEDS: DEXAMETHASONE SOD PHOSPHATE 4 MG INJ IV SCH ×3 (05:19→21:02)
[2020-12-03] MEDS: PANTOPRAZOLE SODIUM 40 MG TABLET.DR PO SCH (06:09)
[2020-12-03] MEDS: LEVOTHYROXINE SODIUM 100 MCG TABLET PO SCH (06:18)
[2020-12-03] MEDS: BLOOD SUGAR DIAGNOSTIC 1 EACH STRIP VI SCH ×4 (06:34→21:31)
[2020-12-03 07:02] LABS: HEMATOCRIT 39.2 % (31.2-41.9); MEAN CORPUSCULAR HEMOGLOBIN 30.5 uug (24.7-32.8); MEAN CORPUSCULAR VOLUME 90.1 fL (75.5-95.3); PLATELET COUNT (AUTO) 285 K/uL (179-408)
[2020-12-03 07:21] LABS: CARBON DIOXIDE 21 mmol/L (21-32); CHLORIDE 102 mmol/L (98-107); CREATININE 1.8 mg/dL (0.6-1.3); GLUCOSE 129 mg/dL (74-106); POTASSIUM 5.7 mmol/L (3.5-5.1)
[2020-12-03] MEDS: GLUCERNA SHAKE VANILLA 237 ML CAN PO SCH ×3 (10:12→17:31)
[2020-12-03] MEDS: FUROSEMIDE 20 MG/2 ML VIAL IV SCH (10:12)
[2020-12-03] MEDS: CHOLECALCIFEROL 1,000 UNIT TABLET PO SCH (10:13)
[2020-12-03] MEDS: ASCORBIC ACID 500 MG TABLET PO SCH (10:13)
[2020-12-03] MEDS: ZINC SULFATE 220 MG CAPSULE PO SCH (10:13)
[2020-12-03] MEDS: HEPARIN SODIUM,PORCINE 5,000 UNITS/ML VIAL SQ SCH ×2 (10:15→20:40)
[2020-12-03 10:54] LABS: PHOSPHOROUS 8.2 mg/dL (2.5-4.9); UREA NITROGEN, BLOOD 137 mg/dL (7-18)
[2020-12-03 11:46] VITALS: BP 98/48
[2020-12-03 13:04] LABS: LYMPHOCYTES % (MANUAL) 6 % (20-40); MONOCYTES % (MANUAL) 5 % (2-10); NEUTROPHILS % (MANUAL) 89 % (42-75)
[2020-12-03 15:48] VITALS: BP 117/41
--- NOTE | 2020-12-03 19:22 | NUR ---
Patient is on high flow, on NC 15L and non rebreather at 40L. Saturating at 90-92%. Denies pain at the start of the shift. Kept on comfortable position. Will continue to monitor.
[2020-12-03] MEDS ORDERED: ACETAMINOPHEN 650 MG/20.3 ML LIQUID UDC NG ONE (20:00)
[2020-12-03] MEDS ORDERED: methylPREDNISolone SOD SUCC 40 MG/ML VIAL IV ONE (20:00)
[2020-12-03] MEDS ORDERED: diphenhydrAMINE 50 MG/1 ML VIAL IV ONE (20:00)
[2020-12-03 20:15] VITALS: BP 117/30
[2020-12-03 20:25] VITALS: BP 122/49
[2020-12-03] MEDS: TOCILIZUMAB 400 MG in IV NORMAL SALINE 80 ML IV ONE ×2 (20:38→20:47)
[2020-12-03] MEDS: INSULIN GLARGINE,HUM 300 UNITS/3 ML CARTRIDGE SQ SCH (21:36)
[2020-12-03] MEDS: INSULIN REGULAR, HUMAN 300 UNIT/3 ML VIAL SQ PRN (21:37)
[2020-12-04] VITALS (32 sets, daily range): BP systolic 0–148; BP diastolic 0–135
[2020-12-04] MEDS: DEXAMETHASONE SOD PHOSPHATE 4 MG INJ IV SCH ×3 (05:27→22:03)
[2020-12-04] MEDS: LEVOTHYROXINE SODIUM 100 MCG TABLET PO SCH (05:27)
[2020-12-04] MEDS: PANTOPRAZOLE SODIUM 40 MG TABLET.DR PO SCH (05:27)
[2020-12-04 06:22] LABS: HEMATOCRIT 39.9 % (31.2-41.9); MEAN CORPUSCULAR HEMOGLOBIN 29.8 uug (24.7-32.8); MEAN CORPUSCULAR VOLUME 90.7 fL (75.5-95.3); PLATELET COUNT (AUTO) 267 K/uL (179-408)
[2020-12-04 06:39] LABS: BILIRUBIN,DIRECT 0.4 mg/dL (0.0-0.2); BILIRUBIN,TOTAL 0.7 mg/dL (0.2-1.0); TOTAL PROTEIN, SERUM 5.1 g/dL (6.4-8.2)
[2020-12-04] MEDS: BLOOD SUGAR DIAGNOSTIC 1 EACH STRIP VI SCH ×2 (06:39→12:23)
--- NOTE | 2020-12-04 06:59 | NUR ---
No distress identified through the night. BM x1 noted. Saturating at 96-97% on high flow. Critical lab of WBC 42.1 , notified MD. Kept patient comfortable, denies pain. Redness noted to the sacral area. Due meds given as ordered. Endorsed to the next shift for continuity of care.
[2020-12-04 07:55] LABS: CARBON DIOXIDE 15 mmol/L (21-32); CHLORIDE 101 mmol/L (98-107); CREATININE 2.8 mg/dL (0.6-1.3); FERRITIN 2939 ng/mL (8-252); LACTATE DEHYDROGENASE 363 U/L (81-234)
[2020-12-04 08:01] LABS: GLUCOSE 315 mg/dL (74-106); PHOSPHOROUS 9.1 mg/dL (2.5-4.9); POTASSIUM 6.7 mmol/L (3.5-5.1); UREA NITROGEN, BLOOD 165 mg/dL (7-18)
[2020-12-04] MEDS: CHOLECALCIFEROL 1,000 UNIT TABLET PO SCH (08:40)
[2020-12-04] MEDS: ZINC SULFATE 220 MG CAPSULE PO SCH (08:40)
[2020-12-04] MEDS: HEPARIN SODIUM,PORCINE 5,000 UNITS/ML VIAL SQ SCH ×2 (08:40→22:02)
[2020-12-04] MEDS: ASCORBIC ACID 500 MG TABLET PO SCH (08:40)
[2020-12-04] MEDS: GLUCERNA SHAKE VANILLA 237 ML CAN PO SCH ×3 (08:41→17:00)
--- NOTE | 2020-12-04 08:42 | NUR ---
Patient critical lab potassium 6.7, BUN 165, phosphorus 9.1 relayed to MD Macias, MD Salcido notified thru voice message. Addendum: 12/04/20 at 1247 by MACKENZIE CARRASQUILLO RN RN MD Macias ordered Kayexelate for and monitor EKG with sinus tachycardia result.
[2020-12-04] MEDS ORDERED: SODIUM POLYSTYRENE SULFONATE 15 G/60 ML LIQUID UDC PO ONE (08:45)
[2020-12-04] MEDS: INSULIN REGULAR, HUMAN 300 UNIT/3 ML VIAL SQ PRN ×2 (08:53→12:29)
[2020-12-04] MEDS ORDERED: NORMAL SALINE IV ONE (12:00)
[2020-12-04] MEDS ORDERED: CALCIUM GLUCONATE IV ONE (12:00)
[2020-12-04] MEDS: CALCIUM GLUCONATE IV 1 GM in IV NORMAL SALINE 100 ML IV SCH ×3 (12:25→15:22)
[2020-12-04] MEDS ORDERED: SODIUM BICARBONATE 8.4% 50 MEQ/50 ML DISP.SYRIN IV ONE ×2 (12:30→13:00)
--- NOTE | 2020-12-04 12:47 | NUR ---
Patient interface engineer MD Salcido called and ordered calcium gluconate x 3 baf and sodium bicarbonate IV. Patient confusion noted, keep removing non rebreather mask and nasal cannula, BP 92/31, Patient noted purple skin color. MD Anders notified, MD Macias notified and ordered transfer to ICU to increase level of care. Patient lasix 5ml once given. Patient blood sugar 306, coverage given. Report given to Alivia SIMONS in ICU.
[2020-12-04] MEDS ORDERED: SODIUM POLYSTYRENE SULFONATE ENEMA 30 G/120 ML BOTTLE RC ONE (13:00)
[2020-12-04] MEDS ORDERED: ROCURONIUM BROMIDE 50 MG/5 ML VIAL ONE (13:00)
[2020-12-04] MEDS ORDERED: SUCCINYLCHOLINE CHLORIDE 200 MG/10 ML VIAL ONE (13:00)
[2020-12-04] MEDS ORDERED: FUROSEMIDE 20 MG/2 ML VIAL IV ONE (13:00)
--- NOTE | 2020-12-04 13:11 | NUR ---
Contacted Dr. Baker regarding patient's ABG results and that she has been transferred to ICU. Dr. Baker noted to intubate patient if she becomes more altered or loses consciousness.
[2020-12-04 13:12] LABS: ABG BASE EXCESS -22.5 mmol/L; ABG HCO3 6.7 mmol/L; ABG PCO2 25.2 mmHg (35.0-45.0); ABG PH 7.044 (7.350-7.450); ABG PO2 136.6 mmHg (75.0-100.0); ABG SITE RIGHT BRACHIAL; ABG TOTAL HEMOGLOBIN 14.2 G/dL (12.0-16.0); COHb 0.8 % (0.5-1.5); MetHb 0.3 % (0.0-1.5); O2Hb 96.3 % (94.0-97.0); VENT MODE HF - vapotherm
[2020-12-04] MEDS ORDERED: ALBUMIN HUMAN 25% 50 ML IV PRN (13:30)
--- NOTE | 2020-12-04 13:30 | NUR ---
Patient transfer to ICU for highest level of care around 1300. MD Macias aware, Daughter notified. MD Salcido made aware.
--- NOTE | 2020-12-04 13:50 | NUR ---
Patient became nonresponsive and lethargic. ER doctor called as ordered and notified Dr. Marie that patient needs to be intubated as she has become nonresponsive. supervisor spring up notified that patient needs to be intubated.
[2020-12-04] MEDS ORDERED: KETAMINE HCL 500 MG/10 ML INJ IV STA (14:01)
--- NOTE | 2020-12-04 14:02 | NUR ---
Dr. Marie initially ordered 7mg of Ketamine, after verification and removal Dr. Marie changed his order to 40mg of Ketamine instead. Patient was ultimately given only 40mg of Ketamine. Discussed this with Beena Pharmacist.
[2020-12-04 14:04] LABS: BAND % (MANUAL) 4 % (0-10); LYMPHOCYTES % (MANUAL) 2 % (20-40); MONOCYTES % (MANUAL) 8 % (2-10); NEUTROPHILS % (MANUAL) 86 % (42-75)
[2020-12-04] MEDS ORDERED: KETAMINE HCL 500 MG/10 ML INJ IV ONE (14:15)
--- NOTE | 2020-12-04 14:15 | NUR ---
Ketamine 453 wasted.
--- NOTE | 2020-12-04 14:23 | NUR ---
Received orders from Dr. rodriguez to give propofol titration up to 70mcg/ml/min post intubation if sedation is needed.
[2020-12-04] MEDS ORDERED: NOREPINEPHRINE BITARTRATE 32 MG in IV NORMAL SALINE 218 ML IV PRN (14:30)
[2020-12-04] MEDS ORDERED: PROPOFOL 100 ML IV PRN ×2 (14:30)
--- NOTE | 2020-12-04 15:15 | NUR ---
Patient transferred from [facility] at 1330. Received patient visibly distress. On high flow NC at 40L and NRB mask at 15L. Left upper arm midline flushing but had significant back flow. Eunice ER nurse started IV in right AC 20G, gave patient 1L NS and rocuronium at 1422 prior to intubation. Received order to intubate patient after she became unresponsive. Intubated at 1424 by DALIA ESPARZA. Addendum: 12/04/20 at 1620 by PATO MAY RN ET tube size 7 at 22 cm lip line Initial vent settings: AC 16, TV 450, FiO2 100%, PEEP 8.
[2020-12-04 16:09] LABS: ABG BASE EXCESS -13.2 mmol/L; ABG PCO2 58.1 mmHg (35.0-45.0); ABG PH 7.083 (7.350-7.450); ABG PO2 123.7 mmHg (75.0-100.0); ABG SITE LEFT RADIAL; ABG TOTAL HEMOGLOBIN 12.9 G/dL (12.0-16.0); COHb 1.1 % (0.5-1.5); MetHb 0.3 % (0.0-1.5); O2Hb 95.3 % (94.0-97.0); VENT MODE VENT - A/C; VT, ABG 450 mL
--- NOTE | 2020-12-04 16:18 | NUR ---
Seen by Dr Baker, pulmonology. New orders received and implemented.
[2020-12-04] MEDS: PHENYLEPHRINE IV 100 MG in IV NORMAL SALINE 240 ML IV PRN ×2 (16:24→23:24)
[2020-12-04] MEDS ORDERED: DEXTROSE 50% 50 ML DISP.SYRIN IV PRN (16:45)
[2020-12-04] MEDS ORDERED: INSULIN REGULAR, HUMAN 300 UNIT/3 ML VIAL SQ PRN (16:45)
[2020-12-04] MEDS ORDERED: IV NORMAL SALINE 500 ML IV ONE ×2 (17:15→21:00)
--- NOTE | 2020-12-04 17:30 | NUR ---
Jacob BALBUENA at bedside for PICC line and susu catheter insertion. STAT chest xray obtained and received okay to use from [place] ATTENDANT for both catheters. notified.
[2020-12-04] MEDS ORDERED: BLOOD SUGAR DIAGNOSTIC 1 EACH STRIP VI SCH (18:00)
[2020-12-04] MEDS ORDERED: CEFEPIME HCL 2 G in IV DEXTROSE 5% 100 ML IV ONE (18:00)
--- NOTE | 2020-12-04 19:00 | NUR ---
Accucheck machine still broken. Materials Inspector just finished 1800 random glucose check at 1845 and samples brought down to lab. Awaiting results.
[2020-12-04 19:55] LABS: ABG BASE EXCESS -16.8 mmol/L; ABG HCO3 13.1 mmol/L; ABG PCO2 46.6 mmHg (35.0-45.0); ABG PH 7.068 (7.350-7.450); ABG PO2 83.6 mmHg (75.0-100.0); ABG SITE RIGHT RADIAL; ABG TOTAL HEMOGLOBIN 13.8 G/dL (12.0-16.0); COHb 0.9 % (0.5-1.5); MetHb 0.3 % (0.0-1.5); O2Hb 90.3 % (94.0-97.0); VENT MODE VENT - A/C; VT, ABG 450 mL
[2020-12-04] MEDS ORDERED: DOPamine IV DRIP 400 MG/250ML 250 ML IV PRN (20:00)
[2020-12-04] MEDS ORDERED: VANCOMYCIN IV 500 MG in IV DEXTROSE 5% 100 ML IV SCH (20:00)
[2020-12-04] MEDS ORDERED: EPINEPHRINE AMP 10 MG in IV NORMAL SALINE 240 ML IV PRN (20:00)
--- NOTE | 2020-12-04 20:05 | NUR ---
called YOUSUF rodriguez and dictated abg and with orders to increase RR 34 on the vent ,YOUSUF rodriguez spoked with the respiratory therapist who is present at this time . Noe also said to call the line construction supervisor .
--- NOTE | 2020-12-04 20:10 | NUR ---
called assembler final and spoked with MARIELLA drug abuse resistance education officer dictated abg and dictated patient iv drips/medication patient max on Levophed drip and neosynephrine drip and to start vasopressin drip ,low bp . informed MD :DENICE also seam taper machine where here to do dialysis not done unable to do dialysis c/o low bp and max on 2 pressors .
--- NOTE | 2020-12-04 20:36 | NUR ---
CALLED [facility] PATIENT WENT VT RATE 180 TO 200, SHOCK PATIENT 200 JOULES AND NO PULSE/PEA CPR STARTED ,[facility] TEAM ARRIVED AND [facility] WAS MANDATED BY MARIBEL MORRISON . [facility]NA[facility] ENDED AT 2044. Addendum: 12/04/20 at 223 by HARINI SERRANO RN SHOCK PATIENT WITH 120 JOULES, PER THE DEFIBRILLATOR SET RATE .
--- NOTE | 2020-12-04 20:45 | NUR ---
VASILE CARABALLO CAME AND WITNESS THE CODE ADVISED TO CALL THE FAMILY .
[2020-12-04 21:11] LABS: ABG BASE EXCESS -12.8 mmol/L; ABG PO2 106.4 mmHg (75.0-100.0); ABG SITE LEFT RADIAL; ABG TOTAL HEMOGLOBIN 12.9 G/dL (12.0-16.0); COHb 0.7 % (0.5-1.5); MetHb 0.1 % (0.0-1.5); O2Hb 95.4 % (94.0-97.0); VENT MODE VENT - A/C; VT, ABG 450 mL
[2020-12-04 21:23] LABS: CARBON DIOXIDE 17 mmol/L (21-32); CHLORIDE 111 mmol/L (98-107); CREATININE 3.5 mg/dL (0.6-1.3); GLUCOSE 252 mg/dL (74-106)
[2020-12-04 21:29] LABS: POTASSIUM 8.4 mmol/L (3.5-5.1)
[2020-12-04 21:30] LABS: UREA NITROGEN, BLOOD 168 mg/dL (7-18)
[2020-12-04] MEDS: VASOPRESSIN 40 UNIT in IV NORMAL SALINE 40 ML IV PRN ×2 (21:38→23:23)
--- NOTE | 2020-12-04 22:00 | NUR ---
PATIENT HAD A MODERATE AMT OF STOOL CHANGED SOILED LINENS AND GOWN F/C AND PERINEAL CARE DONE . TURNED AND REPOSITION PATIENT .
[2020-12-04] MEDS: INSULIN GLARGINE,HUM 300 UNITS/3 ML CARTRIDGE SQ SCH (22:13)
--- NOTE | 2020-12-04 22:19 | NUR ---
called labs to rose grader and spoked with MARIELLA and dictated labs bmp and abg and also ivf drip and aware patient on Levophed,neosynephrine drip ,vasopressin drip and epinephrine drip . NO ORDERS MADE .
--- NOTE | 2020-12-04 23:30 | NUR ---
[facility] CALLED AND FOLLOW [facility] PROTOCOL ,DR: SO FRANKLIN .PATIENT AT 2334
--- NOTE | 2020-12-04 23:34 | NUR ---
[facility] WAS CALLED. [facility] PROTOCOL WAS FOLLOWED. DR. SO FRANKLIN, PT AT [phone]
--- NOTE | 2020-12-04 23:34 | NUR ---
PATIENT AT 233,PRONOUNCE BY DR: MARIBEL RIZZO .
--- NOTE | 2020-12-05 | NUR ---
CALLED PATIENT FAMILY AND SPOKED WITH JOSE FLEMING AND SAID HIS COMING TO SEE THE PATIENT .
--- NOTE | 2020-12-05 01:10 | NUR ---
PATIENT AND PATIENT DAUGHTER CAME AND PATIENT GRANDSON CAME AND SAW PATIENT PROPER PPE OBSERVED , PER PATIENT NO ARRANGEMENT MADE YET AND HE WILL CALL THE HOSPITAL ONCE OR MORTUARY IS CALLED OR IS ARRANGED . BELONGINGS GIVEN TO PATIENT ,PHONE AND PHONE STUDIO HAND .
--- NOTE | 2020-12-05 01:25 | NUR ---
[facility] WAS CALLED NOT A CANDIDATE FOR ORGAN DONATION CASE NO . [id number].SPOKED WITH JERO
--- NOTE | 2020-12-05 01:29 | NUR ---
CALLED [facility] AND KANDICE WELDING MACHINE OPERATOR [employer] TO NOTIFY WAITING FOR CALL BACK .
--- NOTE | 2020-12-05 01:39 | NUR ---
POST MORTEM CARE DONE AND DOUBLE BAG PATIENT C/O COVID +19 .
--- NOTE | 2020-12-05 03:36 | NUR ---
BODY SEND TO [facility] [place] BY SECURITY,PRESCRIPTION BENEFIT SPECIALIST AND AMUSEMENT OR RECREATION CARD CHECKER.
[2020-12-05] MEDS ORDERED: EPINEPHRINE 1:10,000 1 MG/10 ML DISP.SYRIN MC ONE (03:38)
[2020-12-05] MEDS ORDERED: ATROPINE SULFATE 1 MG/10 ML DISP.SYRIN IV ONE (03:38)
[2020-12-05 15:06] LABS: HEPATITIS B SURFACE AG Negative (Negative)
[2020-12-05] MEDS ORDERED: CEFEPIME HCL 1 G in IV DEXTROSE 5% 50 ML IV SCH (18:00)
[2020-12-08 11:07] LABS: CRYPTOCOCCUS AB, SERUM Negative (Negative)
[2020-12-09 22:06] LABS: COCCIDIOIDES CF SERUM Negative (Neg:<1:2)
== END 2020-12-05 03:39 | DRG 208 ==
LOC: ER 11:23 → TELE-TD3 15:58 → TELE3 11-25 10:35 → CCU 12-04 13:10
PROVIDERS: ADMIT Internal Medicine; ATTEND Student in an Organized Health Care Education/Training Program
PROC: B546ZZA Ultrasonography of Right Subclavian Vein, Guidance (ICD-10-PCS; 2020-11-26)
PROC: 05H533Z Insertion of Infusion Device into Right Subclavian Vein, Percutaneous Approach (ICD-10-PCS; 2020-11-26)
PROC: XW033E5 Introduction of Remdesivir Anti-infective into Peripheral Vein, Percutaneous Approach, New Technology Group 5 (ICD-10-PCS; 2020-11-26)
PROC: XW033H5 Introduction of Tocilizumab into Peripheral Vein, Percutaneous Approach, New Technology Group 5 (ICD-10-PCS; 2020-12-03)
PROC: 5A1935Z Respiratory Ventilation, Less than 24 Consecutive Hours (ICD-10-PCS; principal; 2020-12-04)
PROC: 02HV33Z Insertion of Infusion Device into Superior Vena Cava, Percutaneous Approach (ICD-10-PCS; 2020-12-04)
PROC: B548ZZA Ultrasonography of Superior Vena Cava, Guidance (ICD-10-PCS; 2020-12-04)
PROC: 05HM33Z Insertion of Infusion Device into Right Internal Jugular Vein, Percutaneous Approach (ICD-10-PCS; 2020-12-04)
PROC: B543ZZA Ultrasonography of Right Jugular Veins, Guidance (ICD-10-PCS; 2020-12-04)
PROC: 0BH18EZ Insertion of Endotracheal Airway into Trachea, Via Natural or Artificial Opening Endoscopic (ICD-10-PCS; 2020-12-04)
PROC: 5A12012 Performance of Cardiac Output, Single, Manual (ICD-10-PCS; 2020-12-04)
PROC: 5A12012 Performance of Cardiac Output, Single, Manual (ICD-10-PCS; 2020-12-05)
DX: U07.1 COVID-19 (principal); J12.82 Pneumonia due to coronavirus disease 2019; J96.01 Acute respiratory failure with hypoxia; E43 Unspecified severe protein-calorie malnutrition; N17.0 Acute kidney failure with tubular necrosis; R65.21 Severe sepsis with septic shock; A41.89 Other specified sepsis; D75.81 Myelofibrosis; D68.59 Other primary thrombophilia; E87.2 Acidosis; N18.9 Chronic kidney disease, unspecified; E11.22 Type 2 diabetes mellitus with diabetic chronic kidney disease; E03.9 Hypothyroidism, unspecified; E11.65 Type 2 diabetes mellitus with hyperglycemia; E78.5 Hyperlipidemia, unspecified; E83.39 Other disorders of phosphorus metabolism; Z87.891 Personal history of nicotine dependence; Z74.09 Other reduced mobility; Z79.4 Long term (current) use of insulin; I70.0 Atherosclerosis of aorta; Z68.21 Body mass index [BMI] 21.0-21.9, adult; R01.1 Cardiac murmur, unspecified; E86.0 Dehydration; Z79.52 Long term (current) use of systemic steroids; Z79.890 Hormone replacement therapy; E87.5 Hyperkalemia; I35.0 Nonrheumatic aortic (valve) stenosis; T38.0X5A Adverse effect of glucocorticoids and synthetic analogues, initial encounter; I12.9 Hypertensive chronic kidney disease with stage 1 through stage 4 chronic kidney disease, or unspecified chronic kidney disease
CPT/HCPCS: 36415; 36600; 51702; 70030-TC; 71045; 83605; 83615; 83735; 84100; 84132; 84443; 84481; 85025; 85730; 86140; 86480; 86704; 86803; 87040; 87070; 87086; 87328; 87340; 87806; 93005; 93307; 94002; 94760; 97161; A4663; A6209; C9113; G0378; J0171; J0330; J0456; J0461; J0610; J0692; J1100; J1200; J1644; J1815; J1940; J2370; J2405; J2920; J3262; J3370; J3490; J3535; J7030; J7040; J7050; J7060